=== PATIENT | female | born 1950 | race Two or more races ===

== ENCOUNTER → 2018-11-15 | Outpatient (CLI) | payer OTHER ==
--- NOTE | 2018-11-15 13:23 | RAD ---
DATE: 10/16/2018 EXAM: DIGITAL DIAGNOSTIC BILATERAL, BREAST RIGHT HISTORY: Right breast skin thickening COMPARISON: Correlation is made with 09/30/2018 right breast ultrasound exam performed at an outside institution This study was interpreted with the benefit of Computerized Aided Detection (CAD). Breast Density: SCATTERED The breast parenchyma shows scattered fibroglandular densities. Breast parenchyma level B. FINDINGS: Exam is limited for evaluation of the right breast due to inability to optimally compress the right breast. Diffuse right breast skin thickening is evident. No focal suspicious calcification cluster or mass. No distortion. Ultrasound examination of the right breast in all 4 quadrants was performed. No focal mass. No fluid collection. The right breast is diffusely firm upon palpation by myself. IMPRESSION: Diffuse skin thickening of the right breast. No focal mass identified. Inflammatory breast carcinoma is of concern. Breast surgeon consultation is recommended. Referring physician's office was contacted on 11/15/2018 at 1:15 PM. BI-RADS CATEGORY: 5 HIGHLY SUGGESTIVE MALIGNANCY RECOMMENDED FOLLOW-UP: SURG SURGICAL CONSULTATION PQRS compliance statement: Patient information was entered into a reminder system with a target due date pending surgical consultation for the next mammogram. Mammography is a sensitive method for finding small breast cancers, but it does not detect them all and is not a substitute for careful clinical examination. A negative mammogram does not negate a clinically suspicious finding and should not result in delay in biopsying a clinically suspicious abnormality. "Our facility is accredited by the [employer] Mammography Program."
== END | disposition home or self-care (01) ==
LOC: MAMMO 09:38
PROVIDERS: ATTEND Family Medicine
DX: R92.8 Other abnormal and inconclusive findings on diagnostic imaging of breast (principal)
CPT/HCPCS: 76641; 77066

== ENCOUNTER → 2020-09-18 | Outpatient (CLI) | payer OTHER ==
[~2020-09-18] MED LIST: CONTRAST GIVEN. MC PRN; IOHEXOL 350 MG/ML 100 ML VIAL. IV ONE
--- NOTE | 2020-09-18 10:30 | RAD ---
CTA OF THE CHEST WITH AND WITHOUT CONTRAST Clinical indications: Thromboembolic pulmonary hypertension. Technique: Noncontrast axial localizer was performed. After IV infusion of 100 cc of Omnipaque 350, h elical CT scanning of the chest was performed using the CTA pulmonary embolism protocol. Coronal and sagittal MIP reconstructions were generated. PQRS compliance Statement One or more of the following individualized dose reduction techniques were utilized for this study: 1. Automated exposure control 2. Adjustment of the mA and/or kV according to patient size 3. Use of iterative reconstruction technique Comparison: None available. Findings: There is a moderate-sized pulmonary embolism involving the secondary branch of the posterio r left lower lobe. No pulmonary embolism is evident on the right side. No saddle embolism is seen wit hin the main pulmonary trunk. The heart size is normal and no pericardial effusion is seen. There is mild calcified atheromatous disease of the left coronary artery.No focal aneurysmal dilatation or dis section of the thoracic aorta is seen. A large hiatal hernia is seen. The hernia sac also contains a segment of the transverse colon. No pleural effusion or pneumothorax is evident. No lung mass or lung consolidation is evident. The proximal bronchial tree is patent. There is a hemangioma of the T11 ve rtebral body and the right side. No lytic process is seen. No adrenal mass is seen. IMPRESSION: Moderate-sized pulmonary embolism involving the secondary branch of the posterior left lo wer lobe. Age-indeterminate. Could be old based on a report from an outside chest CTA performed [facility] in 2020. Large hiatal hernia. Bilateral groundglass lung infiltrate most likely representing atelectasis. No lung consolidation or lung mass is seen. FOR INTERNAL CODING PURPOSES Critical result: Findings discussed with Alisa Cordero, nurse practitioner on 09/18/2020 10:20 AM. She discussed the findings with the patient's daughter. RESULT CODE: (C) Electronically signed by: Bernardino Burrows MD (09/18/2020 10:28 AM) [id number]
== END ==
LOC: CT 08:40
PROVIDERS: ATTEND Physician Assistant Medical
DX: I26.99 Other pulmonary embolism without acute cor pulmonale (principal); K44.9 Diaphragmatic hernia without obstruction or gangrene; R91.8 Other nonspecific abnormal finding of lung field
CPT/HCPCS: 71275; Q9967

== ENCOUNTER 2021-03-08 14:06 | Inpatient (IN) | payer MEDICAID, OTHER ==
[~2021-03-08] VITALS: Ht 160 cm; Wt 98.0 kg
--- NOTE | 2021-03-08 15:01 | RAD ---
EXAMINATION: Chest radiograph. VIEWS: Single AP view of the chest COMPARISON: 09/18/2020 INDICATION:70 years, Female, shortness of air. FINDINGS: Normal cardiomediastinal silhouette. Bilateral middle and lower lobe nearly symmetrical peripheral op acities. No pleural effusion or pneumothorax. No acute osseous process. IMPRESSION: Bilateral middle and lower lobe peripheral opacities, a component of this may represent soft tissue s ummation, however bilateral infiltrates are not excluded. Electronically signed by: Vinnie Thompson DO (03/08/2021 2:58 PM) [facility]
--- NOTE | 2021-03-08 16:00 | EKG ---
[facility] [address] [place] [address] Test Date: 2021-03-08 Test Time: 14:54:54 Pat Name: EDILMA MCGOVERN Department: Room: Gender: F [employer] Worker: : 1950 Requested By: COREEN ALSTON Order Number: [id number] Reading MD: Jann Lord Measurements Intervals Kress Rate: 67 P: 49 AZ: 154 QRS: 54 QRSD: 88 T: 26 QT: 434 QTc: 462 Interpretive Statements SINUS RHYTHM NORMAL ECG RI6.02 No previous ECG available for comparison Electronically Signed On 03-10-2021 13:30:20 CDT by Jann Lord
[2021-03-08 16:05] LABS: INFLUENZA A PATIENT NEGATIVE (NEGATIVE); INFLUENZA B PATIENT NEGATIVE (NEGATIVE)
--- NOTE | 2021-03-08 16:10 | PHYS DOC ---
General Adult EDM: Chief Complaint: SHORTNESS OF BREATH HPI: HPI: 70 female past medical history of pulmonary embolus on Eliquis, congestive heart failure, and COPD on 3 L nasal cannula, presents to the ED with complaints of worsening shortness of breath for the past 3 days with associated lower extremity swelling. Has not been vaccinated for Covid. Also reports dark stools x1 week and is worried for bleeding. [employer]itting [employer] services were used with RN. Review of Systems: Review of Systems: Constitutional: Denies fever or chills. [] Eyes: Denies change in visual acuity. [] HENT: Denies nasal congestion or sore throat. [] Respiratory: Denies cough or hemoptysis Cardiovascular: Denies chest pain or edema. [] GI: Denies abdominal pain, nausea, vomiting, bloody stools or diarrhea. [] : Denies dysuria or hematuria Musculoskeletal: Denies back pain or joint pain. [] Integument: Denies rash or diaphoresis Neurologic: Denies headache, focal weakness or sensory changes. [] Endocrine: Denies polyuria or polydipsia. [] Lymphatic: Denies swollen glands. [] Psychiatric: Denies depression or anxiety. [] Heart Score: C/O Chest Pain: No Risk Factors: Risk Factors: DM, Current or recent (<one month) smoker, HTN, HLP, family history of CAD, obesity. Risk Scores: Score 0 - 3: 2.5% MACE over next 6 weeks - Discharge Home Score 4 - 6: 20.3% MACE over next 6 weeks - Admit for Clinical Observation Score 7 - 10: 72.7% MACE over next 6 weeks - Early Invasive Strategies Allergies: Allergies: Allergies Coded Allergies Type Severity Reaction Last Updated Verified No Known Drug Allergies 09/18/20 No Physical Exam: PE: Constitutional: Well developed, well nourished, no acute distress, non-toxic appearance. HENT: Normocephalic, atraumatic, Eyes: EOMI, conjunctiva normal, no discharge. Neck: Normal range of motion, supple, Cardiovascular: S1/2 present, regular rhythm, Lungs & Thorax: Speaking in full sentences, bilateral equal chest rise, no tachypnea or increased work of breathing, 97% on 3L NC Abdomen: soft, no tenderness, Skin: Warm, dry, no erythema, no rash. [] Back: No tenderness, no CVA tenderness. [] Extremities: No tenderness, no cyanosis, no lower extremity edema Neurologic: Alert and oriented X 3, normal motor function, normal sensory function, no focal deficits noted. [] Psychologic: Affect normal, judgement normal, mood normal. [] EKG: EKG: Sinus rhythm 67 bpm, no axis deviation, QTC 462, no T wave inversion, no ST elevation or ST depression, no active chest pain Radiology/Procedures: Radiology/Procedures: IMAGING REPORT Signed PATIENT: GLORIA MCGOVERN: [id number] : 1950 LOCATION: ER AGE: 70 SEX: F EXAM STATUS: PRE ER ORD. PHYSICIAN: COREEN ALSTON DO REASON: soa PROCEDURE: PORTABLE CHEST 1V EXAMINATION: Chest radiograph. VIEWS: Single AP view of the chest COMPARISON: 09/18/2020 INDICATION:70 years, Female, shortness of air. FINDINGS: Normal cardiomediastinal silhouette. Bilateral middle and lower lobe nearly symmetrical peripheral opacities. No pleural effusion or pneumothorax. No acute osseous process. IMPRESSION: Bilateral middle and lower lobe peripheral opacities, a component of this may represent soft tissue summation, however bilateral infiltrates are not excluded. Electronically signed by: Nader Thompson DO (03/08/2021 2:58 PM) [facility] DICTATED and SIGNED BY: NADER THOMPSON DO DATE: 03/08/21 [id number] IMAGING REPORT Signed PATIENT: GLORIA MCGOVERN: [id number] : 1950 LOCATION: ER AGE: 70 SEX: F EXAM STATUS: REG ER ORD. PHYSICIAN: COREEN ALSTON DO REASON: soa, h/o pe, r/o pe;BLOODY STOOL; OMNI 350, 100ML PROCEDURE: CT ANGIO CHEST W ABD PEL W/ CTA CHEST_ABDOMEN_AND PELVIS INDICATION: soa, h/o pe, r/o pe;BLOODY STOOL Comparison: CTA chest 09/18/2020. TECHNIQUE: Following the uneventful administration of a bolus of intravenous contrast, 100 mL Omnipaque 350, axial CT sections were obtained through the chest, abdomen, and pelvis. MIP images and multiplanar reconstructions were also obtained. PQRS compliance statement: One or more of the following individualized dose reduction techniques were utilized for this examination: 1. Automated exposure control 2. Adjustment of the mA and/or kV according to patient size 3. Use of iterative reconstruction technique FINDINGS: Minimal bilateral groundglass and tree-in-bud opacities. No abnormality of the central airways. The pleural spaces are normal. The visualized thyroid is normal in size and attenuation. No axillary or supraclavicular lymphadenopathy. No mediastinal, hilar or retrocrural lymphadenopathy. Normal cardiac size. No pericardial effusion. Coronary artery atherosclerotic disease. Normal caliber thoracic aorta. Large hiatal hernia containing a majority of the stomach with organoaxial rotation, as well as a segment of transverse colon. The liver, gallbladder, pancreas, spleen, and bilateral adrenal glands are normal. Symmetric renal enhancement. There is no focal renal mass. There is no hydronephrosis. The visualized loops of small bowel are normal. The visualized loops of large bowel are normal. There is no evidence of bowel obstruction. Appendix is seen. There is no free fluid. There is no mesenteric or retroperitoneal adenopathy. The abdominal aorta is normal in caliber. Mild aortoiliac atherosclerotic disease. IVC filter Pelvis Findings: Urinary bladder is normal. Right adnexal 5.0 x 3.5 cm lesion with regions of macroscopic fat. No pelvic free fluid. There is no pelvic or inguinal adenopathy. Degenerative changes of the spine. IMPRESSION: 1. No evidence of pulmonary thromboembolic disease. 2. Minimal bilateral groundglass and tree-in-bud opacities, probably an infectious bronchiolitis or aspiration loculated. 3. Large hiatal hernia containing a majority of the stomach as well as segment of transverse colon. 4. Colonic diverticulosis. No evidence of acute diverticulitis. 5. Right adnexal 5 cm dermoid. Electronically signed by: Luz Marina Arroyo MD (03/08/2021 5:58 PM) [facility] DICTATED and SIGNED BY: LUZ MARINA ARROYO MD DATE: 03/08/21 [id number] Course & Med Decision Making: Course & Med Decision Making Pertinent Labs and Imaging studies reviewed. (See chart for details) COVID-19 CRITERIA: The patient was evaluated during the global COVID-19 pandemic, and that diagnosis was suspected/considered upon their initial presentation. Their evaluation, treatment and testing was consistent with current guidelines for patients who present with complaints or symptoms that may be related to COVID-19. Concern for PUI in the setting of COPD requires 3 L nasal cannula and treated for pneumonia. Patient with no home oxygen established. CTA of the chest showed no pulmonary embolus. Patient started on antibiotics and steroids. Will admit for further medical management. Patient stable at time of admission and agrees with this plan. I have spoken with the patient and/or caregivers. I have explained the patient's condition, diagnosis and treatment plan based on the information available to me at this time. I have answered the patient's and/or caregivers questions and answered any concerns. The patient and/or caregivers have as good an understanding of the patient's diagnosis, condition and treatment plan as can be expected at this point. The patient has been stabilized within the capability of the emergency department. The patient will be transported for further care and management or will be moved to an observation or inpatient service. I have communicated with the staff or medical practitioner taking over this patient's care. Dragon Disclaimer: Dragon Disclaimer: This electronic medical record was generated, in whole or in part, using a voice recognition dictation system. Departure Departure Impression: Primary Impression: Person under investigation for COVID-19 Additional Impressions: COPD (chronic obstructive pulmonary disease) CAP (community acquired pneumonia) Disposition: ADMITTED INPATIENT Admitting Physician: FRANDY (Dr. Fields) Condition: STABLE Referrals: ROYA GALLARDO MD (PCP) COREEN ALSTON DO Mar 08, 2021 16:10
[2021-03-08 16:55] LABS: BILIRUBIN,URINE NEGATIVE (NEG); CLARITY,URINE CLEAR; COLOR,URINE YELLOW; NITRITE,URINE NEGATIVE (NEG); PH,URINE 5.5 (<5.0-8.0); PROTEIN,URINE NEGATIVE (NEG-TRACE); UROBILINOGEN,URINE 0.2 mg/dL (0.2 mg/dL)
[2021-03-08 17:05] LABS: BACTERIA,URINE FEW /HPF (0-FEW); RBC,URINE 0 /HPF (0-2); WBC,URINE RARE /HPF (0-4)
[2021-03-08 17:08] LABS: BASO % 1 % (0-3); EOS # 0.2 x10^3/uL (0.0-0.7); EOS % 4 % (0-3); HEMATOCRIT 38.4 % (36.0-47.0); HEMOGLOBIN 12.7 g/dL (12.0-15.5); LYMPH # 0.8 x10^3/uL (1.0-4.8); LYMPH % 13 % (24-48); MEAN CORPUSCULAR HEMOGLOBIN 28 pg (25-35); MEAN CORPUSCULAR HGB CONC 33 g/dL (31-37); MEAN CORPUSCULAR VOLUME 83 fL (79-100); MONO # 0.7 x10^3/uL (0.0-1.1); MONO % 11 % (0-9); NEUT # 4.2 x10^3/uL (1.8-7.7); NEUT % 71 % (31-73); PLATELET COUNT 131 x10^3/uL (140-400); RED CELL DISTRIBUTION WIDTH 13.3 % (11.5-14.5); WHITE BLOOD COUNT 5.9 x10^3/uL (4.0-11.0)
[2021-03-08 17:17] LABS: CALCIUM 8.6 mg/dL (8.5-10.1); CREATININE 0.8 mg/dL (0.6-1.0); GFR 70.7; POTASSIUM 4.2 mmol/L (3.5-5.1)
[2021-03-08 17:23] LABS: ALBUMIN 3.7 g/dL (3.4-5.0); TOTAL BILIRUBIN 0.4 mg/dL (0.2-1.0); TOTAL PROTEIN 7.3 g/dL (6.4-8.2)
[2021-03-08] MEDS ORDERED: CONTRAST GIVEN. MC PRN (17:45)
[2021-03-08] MEDS ORDERED: IOHEXOL 350 MG/ML 100 ML VIAL. IV ONE (17:45)
--- NOTE | 2021-03-08 18:00 | RAD ---
CTA CHEST_ABDOMEN_AND PELVIS INDICATION: soa, h/o pe, r/o pe;BLOODY STOOL Comparison: CTA chest 09/18/2020. TECHNIQUE: Following the uneventful administration of a bolus of intravenous contrast, 100 mL Omnipaq ue 350, axial CT sections were obtained through the chest, abdomen, and pelvis. MIP images and multip lanar reconstructions were also obtained. PQRS compliance statement: One or more of the following individualized dose reduction techniques were utilized for this examinat ion: 1. Automated exposure control 2. Adjustment of the mA and/or kV according to patient size 3. Use of iterative reconstruction technique FINDINGS: Minimal bilateral groundglass and tree-in-bud opacities. No abnormality of the central airways. The pleural spaces are normal. The visualized thyroid is normal in size and attenuation. No axillary or supraclavicular lymphadenopa thy. No mediastinal, hilar or retrocrural lymphadenopathy. Normal cardiac size. No pericardial effusi on. Coronary artery atherosclerotic disease. Normal caliber thoracic aorta. Large hiatal hernia conta ining a majority of the stomach with organoaxial rotation, as well as a segment of transverse colon. The liver, gallbladder, pancreas, spleen, and bilateral adrenal glands are normal. Symmetric renal enhancement. There is no focal renal mass. There is no hydronephrosis. The visualized loops of small bowel are normal. The visualized loops of large bowel are normal. There is no evidence of bowel obstruction. Appendix is seen. There is no free fluid. There is no mesenteric or retroperitoneal adenopathy. The abdominal aorta is normal in caliber. Mild aortoiliac atherosclerotic disease. IVC filter Pelvis Findings: Urinary bladder is normal. Right adnexal 5.0 x 3.5 cm lesion with regions of macroscopic fat. No pelv ic free fluid. There is no pelvic or inguinal adenopathy. Degenerative changes of the spine. IMPRESSION: 1. No evidence of pulmonary thromboembolic disease. 2. Minimal bilateral groundglass and tree-in-bud opacities, probably an infectious bronchiolitis or a spiration loculated. 3. Large hiatal hernia containing a majority of the stomach as well as segment of transverse colon. 4. Colonic diverticulosis. No evidence of acute diverticulitis. 5. Right adnexal 5 cm dermoid. Electronically signed by: Micha Arroyo MD (03/08/2021 5:58 PM) [facility]
[2021-03-08] MEDS ORDERED: AZIT250T PO (18:12)
[2021-03-08] MEDS ORDERED: VENTOLIN HFA18 GM INH (18:12)
[2021-03-08] MEDS ORDERED: PRED20TA PO (18:12)
[2021-03-08] MEDS ORDERED: IPRATRPIUM/ALBUTEROL 0.5/2.5MG 3 ML NEBU. NEB ONE (18:30)
[2021-03-08] MEDS ORDERED: DEXAMETHASONE SOD PHOS 20 MG/5 ML VIAL. IV ONE (18:30)
[2021-03-08] MEDS ORDERED: AZITHRMYCN 500MG IVPB FOR OMNI 250 ML IV ONE (18:30)
[2021-03-08 19:00] VITALS: BP 154/70
[2021-03-08] MEDS: LIDOCAINE (700MG/PATCH) PATCH. TD SCH (19:00)
--- NOTE | 2021-03-08 19:05 | PDOC1 ---
History and Physical Date of Admission Date of Admission DATE: 03/08/21 TIME: 18:47 Identification/Chief Complaint Chief Complaint short of breath Source Source: Chart review, Patient History of Present Illness History of Present Illness Ms. Petty, is a 70 female presents to the ER with worsening shortness of breath with cough and new left upper chest pain that she can reproduce. She has a past medical history of pulmonary embolus on Eliquis, congestive heart failure, and COPD on 3 L nasal cannula, She reports that she feels better already in the ER, and they were just drawing up the Decadron to give her to start treatment. Her primary care is the [facility], and she has been compliant with meds, but has not been vaccinated for COVID. She has recent dark stools she is worried about. She has not been hospitalized here before, Past Medical History Cardiovascular: CHF, HTN GI: No pertinent hx Heme/Onc: No pertinent hx Hepatobiliary: No pertinent hx ENT: No pertinent hx Renal/: No pertinent hx Endocrine: No pertinent hx Dermatology: No pertinent hx Past Surgical History Past Surgical History: No pertinent history Family History Family History: Heart Disease Social History Smoke: No ALCOHOL: none Drugs: None Current Problem List Problem List Problems Medical Problems: (1) CAP (community acquired pneumonia) Status: Acute (2) COPD (chronic obstructive pulmonary disease) Status: Acute (3) Person under investigation for COVID-19 Status: Acute Current Medications Current Medications Current Medications Iohexol (Omnipaque 350 Mg/ml) 100 ml 1X ONCE IV Last administered on 03/08/21at 17:38; Start 03/08/21 at 17:45; Stop 03/08/21 at 17:46; Status DC Info (CONTRAST GIVEN -- Rx MONITORING) 1 each PRN DAILY PRN MC SEE COMMENTS; Start 03/08/21 at 17:45; Stop 03/10/21 at 17:44 Azithromycin 250 ml @ 250 mls/hr 1X ONCE IV ; Start 03/08/21 at 18:30; Stop 03/08/21 at 19:29 Dexamethasone Sodium Phosphate (Decadron) 10 mg 1X ONCE IV Last administered on 03/08/21at 18:39; Start 03/08/21 at 18:30; Stop 03/08/21 at 18:31; Status DC Albuterol/ Ipratropium (Duoneb) 9 ml 1X ONCE NEB ; Start 03/08/21 at 18:30; Stop 03/08/21 at 18:31; Status DC Active Scripts Active Allergies Allergies: Coded Allergies: No Known Drug Allergies (Unverified , 09/18/20) ROS General: YES: Chills, Fatigue, Malaise PSYCHOLOGICAL ROS: No: Anxiety, Behavioral Disorder, Concentration difficultie, Decreased libido, Depression, Disorientation, Hallucinations, Hostility, Irritablity, Memory difficulties, Mood Swings, Obsessive thoughts, Physical abuse, Sexual abuse, Sleep disturbances, Suicidal ideation, Other Eyes: No Blurry vision, No Decreased vision, No Double vision, No Dry eyes, No Excessive tearing, No Eye Pain, No Itchy Eyes, No Loss of vision, No Photophobia , No Scotomata, No Uses contacts, No Uses glasses, No Other HEENT: YES: Heacaches; No: Visual Changes, Hearing change, Nasal congestion, Nasal discharge, Oral lesions, Sinus pain, Sore Throat, Epistaxis, Sneezing, Snoring, Tinnitus, Vertigo, Vocal changes, Other Hematological and Lymphatic: No: Bleeding Problems, Blood Clots, Blood Transfusions, Brusing, Night Sweats, Pallor, Swollen Lymph Nodes, Other Respiratory: YES: Cough, SOB with excertion; No: Hemoptysis, Orthopnea, Pleuritic Pain, Shortness of breath, Sputum Changes, Stridor, Tachypnea, Wheezing, Other Cardiovascular: yes Chest Pain; No Palpitations, No Orthopnea, No Paroxysmal Noc. Dyspnea, No Edema, No Lt Headedness, No Other Gastrointestinal: Yes Nausea; No Vomiting, No Abdominal Pain, No Diarrhea, No Constipation, No Melena, No Hematochezia, No Other Genitourinary: No Dysuria, No Frequency, No Incontinence, No Hematuria, No Retention, No Discharge, No Urgency, No Pain, No Flank Pain, No Other, No , No , No , No , No , No , No Musculoskeletal: Yes Joint Stiffness; No Gait Disturbance, No Joint Pain, No Joint Swelling, No Muscle Pain, No Mu scular Weakness, No Pain In:, No Swelling In:, No Other Neurological: Yes Headaches, Yes Weakness; No Behavorial Changes, No Bowel/Bladder ControlChng, No Confusion, No Dizziness, No Gait Disturbance, No Impaired Coord/balance, No Memory Loss, No Numbness/Tingling, No Seizures, No Speech Problems, No Tremors, No Other Skin: Yes Dry Skin; No Eczema, No Hair Changes, No Lumps, No Mole Changes, No Mottling, No Nail Changes, No Pruritus, No Rash, No Skin Lesion Changes, No Other, No Acne Physical Exam General: Alert, Cooperative, mild distress HEENT: PERRLA, Mucous membr. moist/pink Lungs: Clear to auscultation, Normal air movement Heart: S1S2, RRR Abdomen: Soft, No tenderness Rectal Exam: not examined Extremities: No cyanosis, No edema Skin: No rashes Neuro: Normal speech, Normal tone Psych/Mental Status: Mental status NL, Mood NL Vitals Vitals Vital Signs Date Time Temp Pulse Resp B/P (MAP) Pulse Ox O2 Delivery O2 Flow Rate FiO2 03/08/21 14:58 97.4 83 18 205/84 (124) 95 97.4 Labs Labs Laboratory Tests Test 03/08/21 15:15 03/08/21 16:12 03/08/21 16:18 03/08/21 16:50 Influenza Type A Antigen Negative (NEGATIVE) Influenza Type B Antigen Negative (NEGATIVE) Urine Collection Type Unknown Urine Color Yellow Urine Clarity Clear Urine pH 5.5 (<5.0-8.0) Urine Specific [place] 1.015 (1.000-1.030) Urine Protein Negative mg/dL (NEG-TRACE) Urine Glucose (UA) Negative mg/dL (NEG) Urine Ketones (Stick) Negative mg/dL (NEG) Urine Blood Negative (NEG) Urine Nitrite Negative (NEG) Urine Bilirubin Negative (NEG) Urine Urobilinogen Dipstick 0.2 mg/dL (0.2 mg/dL) Urine Leukocyte Esterase Negative (NEG) Urine RBC 0 /HPF (0-2) Urine WBC Rare /HPF (0-4) Urine Squamous Epithelial Cells Occ /LPF Urine Bacteria Few /HPF (0-FEW) SARS-CoV-2 Antigen (Rapid) Negative (NEGATIVE) White Blood Count 5.9 x10^3/uL (4.0-11.0) Red Blood Count 4.60 x10^6/uL (3.50-5.40) Hemoglobin 12.7 g/dL (12.0-15.5) Hematocrit 38.4 % (36.0-47.0) Mean Corpuscular Volume 83 fL (79-100) Mean Corpuscular Hemoglobin 28 pg (25-35) Mean Corpuscular Hemoglobin Concent 33 g/dL (31-37) Red Cell Distribution Width 13.3 % (11.5-14.5) Platelet Count 131 x10^3/uL (140-400) Neutrophils (%) (Auto) 71 % (31-73) Lymphocytes (%) (Auto) 13 % (24-48) Monocytes (%) (Auto) 11 % (0-9) Eosinophils (%) (Auto) 4 % (0-3) Basophils (%) (Auto) 1 % (0-3) Neutrophils # (Auto) 4.2 x10^3/uL (1.8-7.7) Lymphocytes # (Auto) 0.8 x10^3/uL (1.0-4.8) Monocytes # (Auto) 0.7 x10^3/uL (0.0-1.1) Eosinophils # (Auto) 0.2 x10^3/uL (0.0-0.7) Basophils # (Auto) 0.0 x10^3/uL (0.0-0.2) Sodium Level 142 mmol/L (136-145) Potassium Level 4.2 mmol/L (3.5-5.1) Chloride Level 104 mmol/L (98-107) Carbon Dioxide Level 32 mmol/L (21-32) Anion Gap 6 (6-14) Blood Urea Nitrogen 21 mg/dL (7-20) Creatinine 0.8 mg/dL (0.6-1.0) Estimated GFR (Cockcroft-Gault) 70.7 BUN/Creatinine Ratio 26 (6-20) Glucose Level 100 mg/dL (70-99) Lactic Acid Level 0.6 mmol/L (0.4-2.0) Calcium Level 8.6 mg/dL (8.5-10.1) Total Bilirubin 0.4 mg/dL (0.2-1.0) Aspartate Amino Transf (AST/SGOT) 17 U/L (15-37) Alanine Aminotransferase (ALT/SGPT) 17 U/L (14-59) Alkaline Phosphatase 107 U/L (46-116) Creatine Kinase 61 U/L (26-192) Troponin I High Sensitivity 7 ng/L (4-50) [id number]-Type Natriuretic Peptide 379 pg/mL (0-124) Total Protein 7.3 g/dL (6.4-8.2) Albumin 3.7 g/dL (3.4-5.0) Albumin/Globulin Ratio 1.0 (1.0-1.7) Laboratory Tests Test 03/08/21 15:15 03/08/21 16:12 03/08/21 16:18 03/08/21 16:50 Influenza Type A Antigen Negative (NEGATIVE) Influenza Type B Antigen Negative (NEGATIVE) Urine Collection Type Unknown Urine Color Yellow Urine Clarity Clear Urine pH 5.5 (<5.0-8.0) Urine Specific [place] 1.015 (1.000-1.030) Urine Protein Negative mg/dL (NEG-TRACE) Urine Glucose (UA) Negative mg/dL (NEG) Urine Ketones (Stick) Negative mg/dL (NEG) Urine Blood Negative (NEG) Urine Nitrite Negative (NEG) Urine Bilirubin Negative (NEG) Urine Urobilinogen Dipstick 0.2 mg/dL (0.2 mg/dL) Urine Leukocyte Esterase Negative (NEG) Urine RBC 0 /HPF (0-2) Urine WBC Rare /HPF (0-4) Urine Squamous Epithelial Cells Occ /LPF Urine Bacteria Few /HPF (0-FEW) SARS-CoV-2 Antigen (Rapid) Negative (NEGATIVE) White Blood Count 5.9 x10^3/uL (4.0-11.0) Red Blood Count 4.60 x10^6/uL (3.50-5.40) Hemoglobin 12.7 g/dL (12.0-15.5) Hematocrit 38.4 % (36.0-47.0) Mean Corpuscular Volume 83 fL (79-100) Mean Corpuscular Hemoglobin 28 pg (25-35) Mean Corpuscular Hemoglobin Concent 33 g/dL (31-37) Red Cell Distribution Width 13.3 % (11.5-14.5) Platelet Count 131 x10^3/uL (140-400) Neutrophils (%) (Auto) 71 % (31-73) Lymphocytes (%) (Auto) 13 % (24-48) Monocytes (%) (Auto) 11 % (0-9) Eosinophils (%) (Auto) 4 % (0-3) Basophils (%) (Auto) 1 % (0-3) Neutrophils # (Auto) 4.2 x10^3/uL (1.8-7.7) Lymphocytes # (Auto) 0.8 x10^3/uL (1.0-4.8) Monocytes # (Auto) 0.7 x10^3/uL (0.0-1.1) Eosinophils # (Auto) 0.2 x10^3/uL (0.0-0.7) Basophils # (Auto) 0.0 x10^3/uL (0.0-0.2) Sodium Level 142 mmol/L (136-145) Potassium Level 4.2 mmol/L (3.5-5.1) Chloride Level 104 mmol/L (98-107) Carbon Dioxide Level 32 mmol/L (21-32) Anion Gap 6 (6-14) Blood Urea Nitrogen 21 mg/dL (7-20) Creatinine 0.8 mg/dL (0.6-1.0) Estimated GFR (Cockcroft-Gault) 70.7 BUN/Creatinine Ratio 26 (6-20) Glucose Level 100 mg/dL (70-99) Lactic Acid Level 0.6 mmol/L (0.4-2.0) Calcium Level 8.6 mg/dL (8.5-10.1) Total Bilirubin 0.4 mg/dL (0.2-1.0) Aspartate Amino Transf (AST/SGOT) 17 U/L (15-37) Alanine Aminotransferase (ALT/SGPT) 17 U/L (14-59) Alkaline Phosphatase 107 U/L (46-116) Creatine Kinase 61 U/L (26-192) Troponin I High Sensitivity 7 ng/L (4-50) KO-Wve-X-Type Natriuretic Peptide 379 pg/mL (0-124) Total Protein 7.3 g/dL (6.4-8.2) Albumin 3.7 g/dL (3.4-5.0) Albumin/Globulin Ratio 1.0 (1.0-1.7) VTE Prophylaxis Ordered VTE Prophylaxis Devices: No VTE Pharmacological Prophylaxi: Yes Assessment/Plan Assessment/Plan Acute on chronic hypoxic respiratory failure PUI, CT is not supportive of this, eval for COVID, start treatment, Isolate COPD, with acute bronchitis obese, BMI 36 acclerated hypertension, chronic diastolic CHF, no BNP elevation BMI 36 Justifications for Admission Other Justification PABLITO GILLESPIE MD Mar 08, 2021 19:05
[2021-03-08] MEDS ORDERED: METOPROLOL IV PUSH 5 MG/5 ML VIAL. IVP ONE (19:30)
[2021-03-08] MEDS: LOSARTAN POTASSIUM 50 MG TABLET. PO SCH (22:04)
[2021-03-08] MEDS: CARVEDILOL 12.5 MG TABLET. PO SCH (22:05)
[2021-03-08] MEDS: ENOXAPARIN 40 MG/0.4 ML SYRINGE. SQ SCH (22:06)
[2021-03-08 23:00] VITALS: BP 153/71
[2021-03-09 03:16] VITALS: BP 142/54
[2021-03-09 06:26] VITALS: BP 150/56
[2021-03-09] MEDS: CARVEDILOL 12.5 MG TABLET. PO SCH ×2 (08:00→17:38)
[2021-03-09] MEDS: ZINC SULFATE 220 MG CAPSULE. PO SCH (09:52)
[2021-03-09] MEDS: ASCORBIC ACID 500 MG TABLET PO SCH (09:52)
[2021-03-09] MEDS: LOSARTAN POTASSIUM 50 MG TABLET. PO SCH (09:53)
[2021-03-09] MEDS: AZITHROMYCIN 250 MG TABLET. PO SCH (09:53)
[2021-03-09] MEDS: DEXAMETHASONE SOD PHOS 4 MG/ML VIAL IVP SCH (09:54)
[2021-03-09] MEDS: LIDOCAINE (700MG/PATCH) PATCH. TD SCH (09:54)
--- NOTE | 2021-03-09 10:28 | CONS ---
DATE OF CONSULTATION: 03/09/2021 REASON FOR CONSULTATION: I was asked to see this 70-year-old lady for acute on chronic respiratory failure. HISTORY OF PRESENT ILLNESS: She speaks very little [place] with the help of RN. The information was obtained. She is an ex-smoker. She is on oxygen 3 liters per minute via nasal cannula. She did not receive her COVID vaccine. She presented to Emergency Room with increased shortness of breath and lower extremity edema for the past few days. She is on Eliquis for PE. Reportedly, she also had dark stool for a few days. ALLERGIES: No known drug allergies. MEDICATIONS: She is currently on zinc, vitamin C, dexamethasone, azithromycin, Lovenox, Coreg, Cozaar. SOCIAL HISTORY: Ex-smoker. FAMILY HISTORY: Hypertension. REVIEW OF SYSTEMS: Has not had sleep study. Other systems otherwise negative. PHYSICAL EXAMINATION: GENERAL: This is an obese lady. Her BMI is 38.3. VITAL SIGNS: Her O2 saturation on 4 liters of oxygen is 94%, respiratory rate 18, heart rate 68, blood pressure 150/56, temperature 97.8. HEENT: Normocephalic, atraumatic. Pupils are equal, round, reactive to light. Nose is clear. There is shallow oropharynx. NECK: Short, thick. CARDIOVASCULAR: Regular rate and rhythm. CHEST: Inspection is normal. LUNGS:. There are bibasilar crackles. ABDOMEN: Soft and obese. Bowel sounds are good. EXTREMITIES: There is edema. LYMPHATICS: There is no lymphadenopathy. LABORATORY DATA: I reviewed the following lab data. CT angiogram of the chest did not show pulmonary embolism. It showed minimal bilateral ground glass opacities, large hiatal hernia, colonic diverticulosis, right adnexal 5 cm dermoid. COVID rapid test negative. Influenza A and B negative. Sodium 142, potassium 4.2, chloride 104, CO2 of 32, BUN 21, creatinine 0.8. Lactic acid 0.6. Troponin 7. BNP 379. WBC 5.9, hemoglobin 12.7, platelet 131. IMPRESSION: 1. Acute on chronic respiratory failure, multifactorial in etiology including acute bronchitis versus pneumonia, chronic obstructive pulmonary disease, congestive heart failure, rule out COVID-[address]. [address] of the chest. 3. Chronic obstructive pulmonary disease with acute exacerbation. 4. Acute bronchitis versus pneumonia. 5. Obesity, highly suspect she has obstructive sleep apnea-hypopnea syndrome. 6. History of pulmonary embolism, on Eliquis. PLAN AND RECOMMENDATIONS: 1. Titrate FiO2 to keep O2 saturation 91%. 2. Continue steroid. 3. Follow up COVID-19 PCR test. 4. Continue antibiotic. 5. Restart Eliquis. 6. I do recommend a sleep study as an outpatient. 7. The findings and recommendations were discussed with RN. Thank you very much for allowing me to participate in care of this very nice lady. CINTHYA DR: Navi TID: [id number]
[2021-03-09 11:00] VITALS: BP 168/73
--- NOTE | 2021-03-09 13:23 | PDOC ---
[employer] PROGRESS NOTE Date of Service DOS: DATE: 03/09/21 TIME: 13:21 Chief Complaint Chief Complaint Acute on chronic hypoxic respiratory failure PUI, CT is not supportive of this, eval for COVID, start treatment, Isolate COPD, with acute bronchitis obese, BMI 36 acclerated hypertension, chronic diastolic CHF, no BNP elevation BMI 36 History of Present Illness History of Present Illness feels better, no event, ready to go home soon, COVID stll pending, eating OK, cough better Vitals/I&O Vitals/I&O: Vital Signs Date Time Temp Pulse Resp B/P (MAP) Pulse Ox O2 Delivery O2 Flow Rate FiO2 03/09/21 09:53 68 150/56 03/09/21 06:26 97.8 18 95 Nasal Cannula 97.8 03/08/21 20:30 4.0 Physical Exam General: Alert, Cooperative, mild distress Heart: Regular rate Abdomen: Soft, No tenderness Extremities: No cyanosis, No edema Skin: No rashes Labs Labs: Laboratory Tests Test 03/08/21 15:15 03/08/21 16:12 03/08/21 16:18 03/08/21 16:50 Influenza Type A Antigen Negative (NEGATIVE) Influenza Type B Antigen Negative (NEGATIVE) Urine Collection Type Unknown Urine Color Yellow Urine Clarity Clear Urine pH 5.5 (<5.0-8.0) Urine Specific [place] 1.015 (1.000-1.030) Urine Protein Negative mg/dL (NEG-TRACE) Urine Glucose (UA) Negative mg/dL (NEG) Urine Ketones (Stick) Negative mg/dL (NEG) Urine Blood Negative (NEG) Urine Nitrite Negative (NEG) Urine Bilirubin Negative (NEG) Urine Urobilinogen Dipstick 0.2 mg/dL (0.2 mg/dL) Urine Leukocyte Esterase Negative (NEG) Urine RBC 0 /HPF (0-2) Urine WBC Rare /HPF (0-4) Urine Squamous Epithelial Cells Occ /LPF Urine Bacteria Few /HPF (0-FEW) SARS-CoV-2 RNA (SOL) Negative (Negative) SARS-CoV-2 Antigen (Rapid) Negative (NEGATIVE) White Blood Count 5.9 x10^3/uL (4.0-11.0) Red Blood Count 4.60 x10^6/uL (3.50-5.40) Hemoglobin 12.7 g/dL (12.0-15.5) Hematocrit 38.4 % (36.0-47.0) Mean Corpuscular Volume 83 fL (79-100) Mean Corpuscular Hemoglobin 28 pg (25-35) Mean Corpuscular Hemoglobin Concent 33 g/dL (31-37) Red Cell Distribution Width 13.3 % (11.5-14.5) Platelet Count 131 x10^3/uL (140-400) Neutrophils (%) (Auto) 71 % (31-73) Lymphocytes (%) (Auto) 13 % (24-48) Monocytes (%) (Auto) 11 % (0-9) Eosinophils (%) (Auto) 4 % (0-3) Basophils (%) (Auto) 1 % (0-3) Neutrophils # (Auto) 4.2 x10^3/uL (1.8-7.7) Lymphocytes # (Auto) 0.8 x10^3/uL (1.0-4.8) Monocytes # (Auto) 0.7 x10^3/uL (0.0-1.1) Eosinophils # (Auto) 0.2 x10^3/uL (0.0-0.7) Basophils # (Auto) 0.0 x10^3/uL (0.0-0.2) Sodium Level 142 mmol/L (136-145) Potassium Level 4.2 mmol/L (3.5-5.1) Chloride Level 104 mmol/L (98-107) Carbon Dioxide Level 32 mmol/L (21-32) Anion Gap 6 (6-14) Blood Urea Nitrogen 21 mg/dL (7-20) Creatinine 0.8 mg/dL (0.6-1.0) Estimated GFR (Cockcroft-Gault) 70.7 BUN/Creatinine Ratio 26 (6-20) Glucose Level 100 mg/dL (70-99) Lactic Acid Level 0.6 mmol/L (0.4-2.0) Calcium Level 8.6 mg/dL (8.5-10.1) Total Bilirubin 0.4 mg/dL (0.2-1.0) Aspartate Amino Transf (AST/SGOT) 17 U/L (15-37) Alanine Aminotransferase (ALT/SGPT) 17 U/L (14-59) Alkaline Phosphatase 107 U/L (46-116) Creatine Kinase 61 U/L (26-192) Troponin I High Sensitivity 7 ng/L (4-50) [id number]-[id number]-G-Type Natriuretic Peptide 379 pg/mL (0-124) Total Protein 7.3 g/dL (6.4-8.2) Albumin 3.7 g/dL (3.4-5.0) Albumin/Globulin Ratio 1.0 (1.0-1.7) Assessment and Plan Assessmemt and Plan Problems Medical Problems: (1) CAP (community acquired pneumonia) Status: Acute (2) COPD (chronic obstructive pulmonary disease) Status: Acute (3) Person under investigation for COVID-19 Status: Acute Comment Review of Relevant I have reviewed the following items fan (where applicable) has been applied. Medications: Current Medications Medications (Trade) Dose Ordered Sig/Gorge Route PRN Reason Start Time Stop Time Status Last Admin Dose Admin Iohexol (Omnipaque 350 Mg/ml) 100 ml 1X ONCE IV 03/08/21 17:45 03/08/21 17:46 DC 03/08/21 17:38 Azithromycin 250 ml @ 250 mls/hr 1X ONCE IV 03/08/21 18:30 03/08/21 19:29 DC 03/08/21 18:47 Dexamethasone Sodium Phosphate (Decadron) 10 mg 1X ONCE IV 03/08/21 18:30 03/08/21 18:31 DC 03/08/21 18:39 Albuterol/ Ipratropium (Duoneb) 9 ml 1X ONCE NEB 03/08/21 18:30 03/08/21 18:31 DC 03/08/21 18:40 Carvedilol (Coreg) 25 mg BIDWMEALS PO 03/08/21 19:30 03/09/21 08:00 Metoprolol Tartrate (Lopressor Vial) 5 mg 1X ONCE IVP 03/08/21 19:30 03/08/21 19:31 DC 03/08/21 22:04 Losartan Potassium (Cozaar) 50 mg DAILY PO 03/08/21 19:15 03/09/21 09:53 Lidocaine (Lidoderm) 1 patch DAILY TD 03/08/21 19:00 03/09/21 09:54 Enoxaparin Sodium (Lovenox 40mg Syringe) 40 mg Q24H SQ 03/08/21 21:00 03/08/21 22:06 Azithromycin (Zithromax) 250 mg DAILY PO 03/09/21 09:00 03/12/21 09:01 03/09/21 09:53 Dexamethasone Sodium Phosphate (Decadron) 4 mg DAILY IVP 03/09/21 09:00 03/09/21 09:54 Ascorbic Acid (Vitamin C) 500 mg DAILY PO 03/09/21 09:00 03/09/21 09:52 Zinc Sulfate (Orazinc) 220 mg DAILY PO 03/09/21 09:00 03/09/21 09:52 Justifications for Admission Other Justification PABLITO GILLESPIE MD Mar 09, 2021 13:23
[2021-03-09 15:00] VITALS: BP 153/89
[2021-03-09 19:00] VITALS: BP 150/67
[2021-03-09] MEDS: ENOXAPARIN 40 MG/0.4 ML SYRINGE. SQ SCH (20:41)
[2021-03-09] MEDS ORDERED: PATCH REMOVAL. MC SCH (21:00)
[2021-03-09 23:10] VITALS: BP 142/66
[2021-03-10 03:40] VITALS: BP 117/49
[2021-03-10 05:31] LABS: BASO % 0 % (0-3); EOS # 0.1 x10^3/uL (0.0-0.7); EOS % 1 % (0-3); HEMATOCRIT 37.4 % (36.0-47.0); HEMOGLOBIN 12.2 g/dL (12.0-15.5); LYMPH % 9 % (24-48); MEAN CORPUSCULAR HEMOGLOBIN 28 pg (25-35); MEAN CORPUSCULAR HGB CONC 33 g/dL (31-37); MEAN CORPUSCULAR VOLUME 84 fL (79-100); MONO # 0.8 x10^3/uL (0.0-1.1); MONO % 7 % (0-9); NEUT # 9.3 x10^3/uL (1.8-7.7); NEUT % 83 % (31-73); PLATELET COUNT 121 x10^3/uL (140-400); RED BLOOD COUNT 4.43 x10^6/uL (3.50-5.40); RED CELL DISTRIBUTION WIDTH 13.6 % (11.5-14.5); WHITE BLOOD COUNT 11.2 x10^3/uL (4.0-11.0)
[2021-03-10 05:40] LABS: ALBUMIN 3.4 g/dL (3.4-5.0); CALCIUM 8.2 mg/dL (8.5-10.1); CREATININE 0.8 mg/dL (0.6-1.0); GFR 70.7; POTASSIUM 3.8 mmol/L (3.5-5.1); TOTAL BILIRUBIN 0.4 mg/dL (0.2-1.0); TOTAL PROTEIN 6.7 g/dL (6.4-8.2)
--- NOTE | 2021-03-10 06:09 | PDOC ---
PULMONARY PROGRESS NOTES DATE: 03/10/21 TIME: 06:09 Subjective on 02 didnt sleep well last night sob better Vitals Vital Signs Date Time Temp Pulse Resp B/P (MAP) Pulse Ox O2 Delivery O2 Flow Rate FiO2 03/10/21 03:40 97.6 60 20 117/49 (71) 95 Nasal Cannula 97.6 03/09/21 20:15 4.0 ROS: No Nausea General: Alert HEENT: Other (nc at ) Lungs: Other (b lat diminished end exp wheezing) Cardiovascular: S1, S2 Abdomen: Soft Neuro Exam: Alert Skin: Warm Labs Laboratory Tests Test 03/08/21 15:15 03/08/21 16:12 03/08/21 16:18 03/08/21 16:50 Influenza Type A Antigen Negative (NEGATIVE) Influenza Type B Antigen Negative (NEGATIVE) Urine Collection Type Unknown Urine Color Yellow Urine Clarity Clear Urine pH 5.5 (<5.0-8.0) Urine Specific [place] 1.015 (1.000-1.030) Urine Protein Negative mg/dL (NEG-TRACE) Urine Glucose (UA) Negative mg/dL (NEG) Urine Ketones (Stick) Negative mg/dL (NEG) Urine Blood Negative (NEG) Urine Nitrite Negative (NEG) Urine Bilirubin Negative (NEG) Urine Urobilinogen Dipstick 0.2 mg/dL (0.2 mg/dL) Urine Leukocyte Esterase Negative (NEG) Urine RBC 0 /HPF (0-2) Urine WBC Rare /HPF (0-4) Urine Squamous Epithelial Cells Occ /LPF Urine Bacteria Few /HPF (0-FEW) SARS-CoV-2 RNA (SOL) Negative (Negative) SARS-CoV-2 Antigen (Rapid) Negative (NEGATIVE) White Blood Count 5.9 x10^3/uL (4.0-11.0) Red Blood Count 4.60 x10^6/uL (3.50-5.40) Hemoglobin 12.7 g/dL (12.0-15.5) Hematocrit 38.4 % (36.0-47.0) Mean Corpuscular Volume 83 fL (79-100) Mean Corpuscular Hemoglobin 28 pg (25-35) Mean Corpuscular Hemoglobin Concent 33 g/dL (31-37) Red Cell Distribution Width 13.3 % (11.5-14.5) Platelet Count 131 x10^3/uL (140-400) Neutrophils (%) (Auto) 71 % (31-73) Lymphocytes (%) (Auto) 13 % (24-48) Monocytes (%) (Auto) 11 % (0-9) Eosinophils (%) (Auto) 4 % (0-3) Basophils (%) (Auto) 1 % (0-3) Neutrophils # (Auto) 4.2 x10^3/uL (1.8-7.7) Lymphocytes # (Auto) 0.8 x10^3/uL (1.0-4.8) Monocytes # (Auto) 0.7 x10^3/uL (0.0-1.1) Eosinophils # (Auto) 0.2 x10^3/uL (0.0-0.7) Basophils # (Auto) 0.0 x10^3/uL (0.0-0.2) Sodium Level 142 mmol/L (136-145) Potassium Level 4.2 mmol/L (3.5-5.1) Chloride Level 104 mmol/L (98-107) Carbon Dioxide Level 32 mmol/L (21-32) Anion Gap 6 (6-14) Blood Urea Nitrogen 21 mg/dL (7-20) Creatinine 0.8 mg/dL (0.6-1.0) Estimated GFR (Cockcroft-Gault) 70.7 BUN/Creatinine Ratio 26 (6-20) Glucose Level 100 mg/dL (70-99) Lactic Acid Level 0.6 mmol/L (0.4-2.0) Calcium Level 8.6 mg/dL (8.5-10.1) Total Bilirubin 0.4 mg/dL (0.2-1.0) Aspartate Amino Transf (AST/SGOT) 17 U/L (15-37) Alanine Aminotransferase (ALT/SGPT) 17 U/L (14-59) Alkaline Phosphatase 107 U/L (46-116) Creatine Kinase 61 U/L (26-192) Troponin I High Sensitivity 7 ng/L (4-50) VJ-Ink-E-Type Natriuretic Peptide 379 pg/mL (0-124) Total Protein 7.3 g/dL (6.4-8.2) Albumin 3.7 g/dL (3.4-5.0) Albumin/Globulin Ratio 1.0 (1.0-1.7) Test 10/31/21 04:30 White Blood Count 11.2 x10^3/uL (4.0-11.0) Red Blood Count 4.43 x10^6/uL (3.50-5.40) Hemoglobin 12.2 g/dL (12.0-15.5) Hematocrit 37.4 % (36.0-47.0) Mean Corpuscular Volume 84 fL (79-100) Mean Corpuscular Hemoglobin 28 pg (25-35) Mean Corpuscular Hemoglobin Concent 33 g/dL (31-37) Red Cell Distribution Width 13.6 % (11.5-14.5) Platelet Count 121 x10^3/uL (140-400) Neutrophils (%) (Auto) 83 % (31-73) Lymphocytes (%) (Auto) 9 % (24-48) Monocytes (%) (Auto) 7 % (0-9) Eosinophils (%) (Auto) 1 % (0-3) Basophils (%) (Auto) 0 % (0-3) Neutrophils # (Auto) 9.3 x10^3/uL (1.8-7.7) Lymphocytes # (Auto) 1.0 x10^3/uL (1.0-4.8) Monocytes # (Auto) 0.8 x10^3/uL (0.0-1.1) Eosinophils # (Auto) 0.1 x10^3/uL (0.0-0.7) Basophils # (Auto) 0.0 x10^3/uL (0.0-0.2) Sodium Level 141 mmol/L (136-145) Potassium Level 3.8 mmol/L (3.5-5.1) Chloride Level 106 mmol/L (98-107) Carbon Dioxide Level 29 mmol/L (21-32) Anion Gap 6 (6-14) Blood Urea Nitrogen 29 mg/dL (7-20) Creatinine 0.8 mg/dL (0.6-1.0) Estimated GFR (Cockcroft-Gault) 70.7 BUN/Creatinine Ratio 36 (6-20) Glucose Level 121 mg/dL (70-99) Calcium Level 8.2 mg/dL (8.5-10.1) Total Bilirubin 0.4 mg/dL (0.2-1.0) Aspartate Amino Transf (AST/SGOT) 12 U/L (15-37) Alanine Aminotransferase (ALT/SGPT) 15 U/L (14-59) Alkaline Phosphatase 99 U/L (46-116) Total Protein 6.7 g/dL (6.4-8.2) Albumin 3.4 g/dL (3.4-5.0) Albumin/Globulin Ratio 1.0 (1.0-1.7) Laboratory Tests Test 03/10/21 04:30 White Blood Count 11.2 x10^3/uL (4.0-11.0) Red Blood Count 4.43 x10^6/uL (3.50-5.40) Hemoglobin 12.2 g/dL (12.0-15.5) Hematocrit 37.4 % (36.0-47.0) Mean Corpuscular Volume 84 fL (79-100) Mean Corpuscular Hemoglobin 28 pg (25-35) Mean Corpuscular Hemoglobin Concent 33 g/dL (31-37) Red Cell Distribution Width 13.6 % (11.5-14.5) Platelet Count 121 x10^3/uL (140-400) Neutrophils (%) (Auto) 83 % (31-73) Lymphocytes (%) (Auto) 9 % (24-48) Monocytes (%) (Auto) 7 % (0-9) Eosinophils (%) (Auto) 1 % (0-3) Basophils (%) (Auto) 0 % (0-3) Neutrophils # (Auto) 9.3 x10^3/uL (1.8-7.7) Lymphocytes # (Auto) 1.0 x10^3/uL (1.0-4.8) Monocytes # (Auto) 0.8 x10^3/uL (0.0-1.1) Eosinophils # (Auto) 0.1 x10^3/uL (0.0-0.7) Basophils # (Auto) 0.0 x10^3/uL (0.0-0.2) Sodium Level 141 mmol/L (136-145) Potassium Level 3.8 mmol/L (3.5-5.1) Chloride Level 106 mmol/L (98-107) Carbon Dioxide Level 29 mmol/L (21-32) Anion Gap 6 (6-14) Blood Urea Nitrogen 29 mg/dL (7-20) Creatinine 0.8 mg/dL (0.6-1.0) Estimated GFR (Cockcroft-Gault) 70.7 BUN/Creatinine Ratio 36 (6-20) Glucose Level 121 mg/dL (70-99) Calcium Level 8.2 mg/dL (8.5-10.1) Total Bilirubin 0.4 mg/dL (0.2-1.0) Aspartate Amino Transf (AST/SGOT) 12 U/L (15-37) Alanine Aminotransferase (ALT/SGPT) 15 U/L (14-59) Alkaline Phosphatase 99 U/L (46-116) Total Protein 6.7 g/dL (6.4-8.2) Albumin 3.4 g/dL (3.4-5.0) Albumin/Globulin Ratio 1.0 (1.0-1.7) Medications Active Scripts Medications Dose Route/Sig Max Daily Dose Days Date Category Impression . IMPRESSION: 1. Acute on chronic respiratory failure, multifactorial in etiology including acute bronchitis versus pneumonia, chronic obstructive pulmonary disease w ae, congestive heart failure, no COVID-19. 2[address] CT of the chest. 3. Chronic obstructive pulmonary disease with acute exacerbation. 4. Acute bronchitis versus pneumonia. 5. Obesity, highly suspect she has obstructive sleep apnea-hypopnea syndrome. 6. History of pulmonary embolism, on Eliquis. Plan . PLAN AND RECOMMENDATIONS: 1. Titrate FiO2 to keep O2 saturation 91%. 2. Continue steroid. 3. COVID-19 PCR test. neg will start BD and ICS 4. Continue antibiotic. 5. Restart Eliquis. 6. I do recommend a sleep study as an outpatient. 7. increase activity pt/ot The findings and recommendations were discussed with LEFTY SHETH MD Mar 10, 2021 06:09
[2021-03-10 07:00] VITALS: BP 150/69
[2021-03-10] MEDS: LIDOCAINE (700MG/PATCH) PATCH. TD SCH (09:00)
[2021-03-10] MEDS ORDERED: BUDESONIDE 0.5 MG/2 ML NEBU. NEB ONE (09:30)
[2021-03-10] MEDS: AZITHROMYCIN 250 MG TABLET. PO SCH (09:30)
[2021-03-10] MEDS: LOSARTAN POTASSIUM 50 MG TABLET. PO SCH (09:31)
[2021-03-10] MEDS: ASCORBIC ACID 500 MG TABLET PO SCH (09:31)
[2021-03-10] MEDS: ZINC SULFATE 220 MG CAPSULE. PO SCH (09:31)
[2021-03-10] MEDS: CARVEDILOL 12.5 MG TABLET. PO SCH (09:31)
[2021-03-10] MEDS: DEXAMETHASONE SOD PHOS 4 MG/ML VIAL IVP SCH (09:37)
[2021-03-10] MEDS ORDERED: LOSA-73 PO (10:52)
[2021-03-10] MEDS ORDERED: PRED-220 PO (10:52)
[2021-03-10] MEDS ORDERED: CARV12.511 PO (10:52)
[2021-03-10] MEDS ORDERED: AZIT250T6 PO (10:52)
[2021-03-10 11:00] VITALS: BP 140/72
--- NOTE | 2021-03-10 11:01 | PDOC3 ---
Discharge Summary Visit Information Date of Admission: Mar 08, 2021 Date of Discharge: Mar 10, 2021 Final Diagnosis Acute on chronic hypoxic respiratory failure PUI, CT is not supportive of this, eval for COVID, start treatment, Isolate COPD, with acute bronchitis obese, BMI 36 acclerated hypertension, chronic diastolic CHF, no BNP elevation BMI 36 Problems Medical Problems: (1) CAP (community acquired pneumonia) Status: Acute (2) COPD (chronic obstructive pulmonary disease) Status: Acute (3) Person under investigation for COVID-19 Status: Acute Brief Hospital Course Allergies Allergies Coded Allergies Type Severity Reaction Last Updated Verified No Known Drug Allergies 09/18/20 No Vital Signs Vital Signs Date Time Temp Pulse Resp B/P (MAP) Pulse Ox O2 Delivery O2 Flow Rate FiO2 03/10/21 09:31 70 150/69 03/10/21 07:00 97.8 20 97 Nasal Cannula 97.8 03/09/21 20:15 4.0 Lab Results Laboratory Tests Test 03/08/21 15:15 03/08/21 16:12 03/08/21 16:18 03/08/21 16:50 Influenza Type A Antigen Negative (NEGATIVE) Influenza Type B Antigen Negative (NEGATIVE) Urine Collection Type Unknown Urine Color Yellow Urine Clarity Clear Urine pH 5.5 (<5.0-8.0) Urine Specific [place] 1.015 (1.000-1.030) Urine Protein Negative mg/dL (NEG-TRACE) Urine Glucose (UA) Negative mg/dL (NEG) Urine Ketones (Stick) Negative mg/dL (NEG) Urine Blood Negative (NEG) Urine Nitrite Negative (NEG) Urine Bilirubin Negative (NEG) Urine Urobilinogen Dipstick 0.2 mg/dL (0.2 mg/dL) Urine Leukocyte Esterase Negative (NEG) Urine RBC 0 /HPF (0-2) Urine WBC Rare /HPF (0-4) Urine Squamous Epithelial Cells Occ /LPF Urine Bacteria Few /HPF (0-FEW) SARS-CoV-2 RNA (SOL) Negative (Negative) SARS-CoV-2 Antigen (Rapid) Negative (NEGATIVE) White Blood Count 5.9 x10^3/uL (4.0-11.0) Red Blood Count 4.60 x10^6/uL (3.50-5.40) Hemoglobin 12.7 g/dL (12.0-15.5) Hematocrit 38.4 % (36.0-47.0) Mean Corpuscular Volume 83 fL (79-100) Mean Corpuscular Hemoglobin 28 pg (25-35) Mean Corpuscular Hemoglobin Concent 33 g/dL (31-37) Red Cell Distribution Width 13.3 % (11.5-14.5) Platelet Count 131 x10^3/uL (140-400) Neutrophils (%) (Auto) 71 % (31-73) Lymphocytes (%) (Auto) 13 % (24-48) Monocytes (%) (Auto) 11 % (0-9) Eosinophils (%) (Auto) 4 % (0-3) Basophils (%) (Auto) 1 % (0-3) Neutrophils # (Auto) 4.2 x10^3/uL (1.8-7.7) Lymphocytes # (Auto) 0.8 x10^3/uL (1.0-4.8) Monocytes # (Auto) 0.7 x10^3/uL (0.0-1.1) Eosinophils # (Auto) 0.2 x10^3/uL (0.0-0.7) Basophils # (Auto) 0.0 x10^3/uL (0.0-0.2) Sodium Level 142 mmol/L (136-145) Potassium Level 4.2 mmol/L (3.5-5.1) Chloride Level 104 mmol/L (98-107) Carbon Dioxide Level 32 mmol/L (21-32) Anion Gap 6 (6-14) Blood Urea Nitrogen 21 mg/dL (7-20) Creatinine 0.8 mg/dL (0.6-1.0) Estimated GFR (Cockcroft-Gault) 70.7 BUN/Creatinine Ratio 26 (6-20) Glucose Level 100 mg/dL (70-99) Lactic Acid Level 0.6 mmol/L (0.4-2.0) Calcium Level 8.6 mg/dL (8.5-10.1) Total Bilirubin 0.4 mg/dL (0.2-1.0) Aspartate Amino Transf (AST/SGOT) 17 U/L (15-37) Alanine Aminotransferase (ALT/SGPT) 17 U/L (14-59) Alkaline Phosphatase 107 U/L (46-116) Creatine Kinase 61 U/L (26-192) Troponin I High Sensitivity 7 ng/L (4-50) OA-Udl-D-Type Natriuretic Peptide 379 pg/mL (0-124) Total Protein 7.3 g/dL (6.4-8.2) Albumin 3.7 g/dL (3.4-5.0) Albumin/Globulin Ratio 1.0 (1.0-1.7) Test 03/10/21 04:30 White Blood Count 11.2 x10^3/uL (4.0-11.0) Red Blood Count 4.43 x10^6/uL (3.50-5.40) Hemoglobin 12.2 g/dL (12.0-15.5) Hematocrit 37.4 % (36.0-47.0) Mean Corpuscular Volume 84 fL (79-100) Mean Corpuscular Hemoglobin 28 pg (25-35) Mean Corpuscular Hemoglobin Concent 33 g/dL (31-37) Red Cell Distribution Width 13.6 % (11.5-14.5) Platelet Count 121 x10^3/uL (140-400) Neutrophils (%) (Auto) 83 % (31-73) Lymphocytes (%) (Auto) 9 % (24-48) Monocytes (%) (Auto) 7 % (0-9) Eosinophils (%) (Auto) 1 % (0-3) Basophils (%) (Auto) 0 % (0-3) Neutrophils # (Auto) 9.3 x10^3/uL (1.8-7.7) Lymphocytes # (Auto) 1.0 x10^3/uL (1.0-4.8) Monocytes # (Auto) 0.8 x10^3/uL (0.0-1.1) Eosinophils # (Auto) 0.1 x10^3/uL (0.0-0.7) Basophils # (Auto) 0.0 x10^3/uL (0.0-0.2) Sodium Level 141 mmol/L (136-145) Potassium Level 3.8 mmol/L (3.5-5.1) Chloride Level 106 mmol/L (98-107) Carbon Dioxide Level 29 mmol/L (21-32) Anion Gap 6 (6-14) Blood Urea Nitrogen 29 mg/dL (7-20) Creatinine 0.8 mg/dL (0.6-1.0) Estimated GFR (Cockcroft-Gault) 70.7 BUN/Creatinine Ratio 36 (6-20) Glucose Level 121 mg/dL (70-99) Calcium Level 8.2 mg/dL (8.5-10.1) Total Bilirubin 0.4 mg/dL (0.2-1.0) Aspartate Amino Transf (AST/SGOT) 12 U/L (15-37) Alanine Aminotransferase (ALT/SGPT) 15 U/L (14-59) Alkaline Phosphatase 99 U/L (46-116) Total Protein 6.7 g/dL (6.4-8.2) Albumin 3.4 g/dL (3.4-5.0) Albumin/Globulin Ratio 1.0 (1.0-1.7) Laboratory Tests Test 03/10/21 04:30 White Blood Count 11.2 x10^3/uL (4.0-11.0) Red Blood Count 4.43 x10^6/uL (3.50-5.40) Hemoglobin 12.2 g/dL (12.0-15.5) Hematocrit 37.4 % (36.0-47.0) Mean Corpuscular Volume 84 fL (79-100) Mean Corpuscular Hemoglobin 28 pg (25-35) Mean Corpuscular Hemoglobin Concent 33 g/dL (31-37) Red Cell Distribution Width 13.6 % (11.5-14.5) Platelet Count 121 x10^3/uL (140-400) Neutrophils (%) (Auto) 83 % (31-73) Lymphocytes (%) (Auto) 9 % (24-48) Monocytes (%) (Auto) 7 % (0-9) Eosinophils (%) (Auto) 1 % (0-3) Basophils (%) (Auto) 0 % (0-3) Neutrophils # (Auto) 9.3 x10^3/uL (1.8-7.7) Lymphocytes # (Auto) 1.0 x10^3/uL (1.0-4.8) Monocytes # (Auto) 0.8 x10^3/uL (0.0-1.1) Eosinophils # (Auto) 0.1 x10^3/uL (0.0-0.7) Basophils # (Auto) 0.0 x10^3/uL (0.0-0.2) Sodium Level 141 mmol/L (136-145) Potassium Level 3.8 mmol/L (3.5-5.1) Chloride Level 106 mmol/L (98-107) Carbon Dioxide Level 29 mmol/L (21-32) Anion Gap 6 (6-14) Blood Urea Nitrogen 29 mg/dL (7-20) Creatinine 0.8 mg/dL (0.6-1.0) Estimated GFR (Cockcroft-Gault) 70.7 BUN/Creatinine Ratio 36 (6-20) Glucose Level 121 mg/dL (70-99) Calcium Level 8.2 mg/dL (8.5-10.1) Total Bilirubin 0.4 mg/dL (0.2-1.0) Aspartate Amino Transf (AST/SGOT) 12 U/L (15-37) Alanine Aminotransferase (ALT/SGPT) 15 U/L (14-59) Alkaline Phosphatase 99 U/L (46-116) Total Protein 6.7 g/dL (6.4-8.2) Albumin 3.4 g/dL (3.4-5.0) Albumin/Globulin Ratio 1.0 (1.0-1.7) Brief Hospital Course Ms. Velez is a 70 old female with knwon COPD, htn, admit for cough, dyspnea, worse hypoxia, isolated for COVID, test was negative steroids, nebs, Discharge Information Condition at Discharge: Improved Follow Up: Weeks Disposition/Orders: D/C to Home Scheduled Azithromycin (Azithromycin Tablet) 250 Mg Tablet, 250 MG PO DAILY for COPD, #4 Prescribed by: PABLITO GILLESPIE on 03/10/21 1052 Carvedilol (Carvedilol ) 12.5 Mg Tablet, 25 MG PO BIDWMEALS for HTN, #60 Prescribed by: PABLITO GILLESPIE on 03/10/21 1052 Losartan Potassium (Cozaar ) 50 Mg Tablet, 50 MG PO DAILY for htn, #30 Prescribed by: PABLITO GILLESPIE on 03/10/21 105 Prednisone (Prednisone ) 10 Mg Tablet, 10 MG PO UD for COPD, #30 Ref 0 Take 5 tablets by mouth daily for 2 days, then take 4 tablets by mouth daily for 2 days, then take 3 tablets by mouth daily for 2 days, then take 2 tablets by mouth daily for 2 days, then take 1 tablets by mouth daily for 2 days, then stop. Prescribed by: PABLIOT GILLESPIE on 03/10/21 1052 Patient Instructions Patient Instructions face to face [facility] Justicifation of Admission Dx: Justifications for Admission: Justification of Admission Dx: Yes (COPD AE) PABLITO GILLESPIE MD Mar 10, 2021 11:01
[2021-03-10] MEDS ORDERED: IPRATRPIUM/ALBUTEROL 0.5/2.5MG 3 ML NEBU. NEB SCH (12:00)
--- NOTE | 2021-03-10 12:50 | NUR ---
DISCHARGE INSTRUCTIONS GIVEN, QUESTIONS AND CONCERNS ANSWERED, PATIENT AND SPOUSE AT THE BEDSIDE VERBALIZED UNDERSTANDING OF DISCHARGE INFORMATION INCLUDING TAKING ALL MEDICATIONS ANS INSTRUCTED AND FOLLOWING UP WITH HER PRIMARY PROVIDER IN 1-2 WEEKS, SALINE LOCK REMOVED PER THIS AVAYA ENGINEER, BANDAGE APPLIED. ALL PERSONAL BELONGINGS GATHERED BY THE PATIENT AND HER SPOUSE AND PLACED IN BAGS FOR DISCHARGE.
--- NOTE | 2021-03-10 13:15 | NUR ---
PATIENT LEAVES THE UNIT PER W/C AND ACCOMPANIED BY THIS PEDICAB DRIVER, EMOTIONAL SUPPORT GIVEN, FOLLOW UP APPOINTMENTS ENCOURAGED.
[2021-03-10] MEDS ORDERED: BUDESONIDE 0.5 MG/2 ML NEBU. NEB SCH (20:00)
== END 2021-03-10 13:15 | disposition home or self-care (01) | DRG 189 ==
LOC: ER 14:06 → 5 SOUTH 18:19
PROVIDERS: ADMIT Internal Medicine; ATTEND Internal Medicine
DX: J96.21 Acute and chronic respiratory failure with hypoxia (principal); I50.32 Chronic diastolic (congestive) heart failure; J44.0 Chronic obstructive pulmonary disease with (acute) lower respiratory infection; J44.1 Chronic obstructive pulmonary disease with (acute) exacerbation; J20.9 Acute bronchitis, unspecified; E66.9 Obesity, unspecified; I11.0 Hypertensive heart disease with heart failure; K44.9 Diaphragmatic hernia without obstruction or gangrene; K57.30 Diverticulosis of large intestine without perforation or abscess without bleeding; Z20.822 Contact with and (suspected) exposure to COVID-19; Z68.36 Body mass index [BMI] 36.0-36.9, adult; Z79.01 Long term (current) use of anticoagulants; Z82.49 Family history of ischemic heart disease and other diseases of the circulatory system; Z86.711 Personal history of pulmonary embolism; Z87.891 Personal history of nicotine dependence
CPT/HCPCS: 36415; 71045; 71275; 74177; 80053; 81001; 82550; 83605; 83880; 84484; 85025; 87040; 87426; 87804; 93005; 94640; J0456; J1100; J1650; J3490; Q9967; U0003; U0005; 99285-25; G0378; J7626